=== PATIENT | female | born 1965 | race Caucasian/White ===

== ENCOUNTER 2018-06-14 08:18 | Emergency (ER) | payer OTHER ==
[~2018-06-14] VITALS: Ht 149.9 cm; Wt 59.4 kg
[~2018-06-14 08:18] MED LIST: PEPCID40 MG PO; PREVACID30 MG
== END 2018-06-14 09:06 | disposition home or self-care (01) ==
LOC: ER 08:18
DX: H60.8X2 Other otitis externa, left ear (principal)

== ENCOUNTER 2020-08-07 08:03 | Emergency (ER) | payer OTHER ==
[~2020-08-07] VITALS: Ht 149.9 cm; Wt 62.1 kg
== END 2020-08-07 12:48 | disposition home or self-care (01) ==
LOC: ER 08:03
DX: R06.02 Shortness of breath (principal); R53.83 Other fatigue; Z03.818 Encounter for observation for suspected exposure to other biological agents ruled out

== ENCOUNTER 2021-06-09 11:38 | Emergency (ER) | payer OTHER ==
[~2021-06-09] VITALS: Ht 149.9 cm; Wt 59.9 kg
== END 2021-06-09 13:41 | disposition home or self-care (01) ==
LOC: ER 11:38
DX: H66.92 Otitis media, unspecified, left ear (principal); H92.02 Otalgia, left ear

== ENCOUNTER 2021-07-24 10:26 | Emergency (ER) | payer OTHER ==
[~2021-07-24] VITALS: Ht 149.9 cm; Wt 61.2 kg
[2021-07-24] MEDS ORDERED: KETO10TA2 PO (12:43)
[2021-07-24] MEDS ORDERED: ZITHROMAX TRI-500 MG PO (12:43)
== END 2021-07-24 12:50 | disposition home or self-care (01) ==
LOC: ER 10:26
DX: B34.9 Viral infection, unspecified (principal); Z03.818 Encounter for observation for suspected exposure to other biological agents ruled out

== ENCOUNTER 2021-07-31 12:27 | Emergency (ER) | payer OTHER ==
[~2021-07-31] VITALS: Ht 154.9 cm; Wt 61.2 kg
[~2021-07-31 12:27] MED LIST changes: +KETO10TA2 PO; +ZITHROMAX TRI-500 MG PO
[2021-07-31] MEDS ORDERED: AMOX-CLAV 875-1 EACH PO (15:24)
[2021-07-31] MEDS ORDERED: MEDROLPACK PO (15:24)
[2021-07-31] MEDS ORDERED: TUSSI PRES-B L480 ML PO (15:24)
== END 2021-07-31 15:45 | disposition home or self-care (01) ==
LOC: ER 12:27
DX: J06.9 Acute upper respiratory infection, unspecified (principal); Z03.818 Encounter for observation for suspected exposure to other biological agents ruled out

== ENCOUNTER 2021-08-26 09:56 | Emergency (ER) | payer OTHER ==
[~2021-08-26] VITALS: Ht 149.9 cm; Wt 61.2 kg
[~2021-08-26 09:56] MED LIST changes: +AMOX-CLAV 875-1 EACH PO; +MEDROLPACK PO; +TUSSI PRES-B L480 ML PO
== END 2021-08-26 13:06 | disposition home or self-care (01) ==
LOC: ER 09:56
DX: B34.9 Viral infection, unspecified (principal)

== ENCOUNTER 2021-11-13 09:06 | Emergency (ER) | payer OTHER ==
[~2021-11-13] VITALS: Ht 149.9 cm; Wt 61.7 kg
== END 2021-11-13 13:06 | disposition home or self-care (01) ==
LOC: ER 09:06
DX: B34.8 Other viral infections of unspecified site (principal)

== ENCOUNTER 2021-12-24 17:45 | Emergency (ER) | payer OTHER ==
[~2021-12-24] VITALS: Ht 149.9 cm; Wt 60.3 kg
== END 2021-12-24 20:33 | disposition home or self-care (01) ==
LOC: ER 17:45
DX: J06.9 Acute upper respiratory infection, unspecified (principal); Z20.822 Contact with and (suspected) exposure to COVID-19

== ENCOUNTER 2022-08-25 07:36 | Emergency (ER) | payer OTHER ==
[~2022-08-25] VITALS: Ht 149.9 cm; Wt 62.6 kg
[2022-08-25] MEDS ORDERED: CLARITIN10 MG PO (10:24)
[2022-08-25] MEDS ORDERED: ZITHROMAX TRI-500 MG PO (10:24)
[2022-08-25] MEDS ORDERED: ZITHROMAX200 MG PO (10:26)
== END 2022-08-25 10:40 | disposition home or self-care (01) ==
LOC: ER 07:36
DX: B34.8 Other viral infections of unspecified site (principal); Z20.828 Contact with and (suspected) exposure to other viral communicable diseases

== ENCOUNTER 2022-10-03 17:15 | Emergency (ER) | payer OTHER ==
[~2022-10-03] VITALS: Ht 149.9 cm; Wt 62.1 kg
[~2022-10-03 17:15] MED LIST changes: +CLARITIN10 MG PO; +ZITHROMAX200 MG PO
== END 2022-10-03 18:45 | disposition home or self-care (01) ==
LOC: ER 17:15
DX: J06.9 Acute upper respiratory infection, unspecified (principal)

== ENCOUNTER 2022-10-09 05:14 | Emergency (ER) | payer OTHER ==
[~2022-10-09] VITALS: Ht 149.9 cm; Wt 63.5 kg
== END 2022-10-09 09:29 | disposition home or self-care (01) ==
LOC: ER 05:14
DX: J40 Bronchitis, not specified as acute or chronic (principal); Z20.822 Contact with and (suspected) exposure to COVID-19

== ENCOUNTER 2022-11-08 16:17 | Emergency (ER) | payer OTHER ==
[~2022-11-08] VITALS: Ht 149.9 cm; Wt 62.1 kg
== END 2022-11-08 20:41 | disposition home or self-care (01) ==
LOC: ER 16:17
DX: R05.9 Cough, unspecified (principal); Z20.828 Contact with and (suspected) exposure to other viral communicable diseases

== ENCOUNTER 2022-12-25 16:46 | Emergency (ER) | payer OTHER ==
[~2022-12-25] VITALS: Ht 149.9 cm; Wt 61.7 kg
== END 2022-12-25 20:19 | disposition home or self-care (01) ==
LOC: ER 16:46
DX: J02.9 Acute pharyngitis, unspecified (principal)

== ENCOUNTER 2023-03-05 05:20 | Emergency (ER) | payer OTHER ==
[~2023-03-05] VITALS: Ht 149.9 cm; Wt 61.2 kg
[2023-03-05] MEDS ORDERED: PHENAGIL TABLE1 EACH PO (07:21)
[2023-03-05] MEDS ORDERED: ZYNCOF 20-400120 ML PO (07:21)
[2023-03-05] MEDS ORDERED: ZITHROMAX500 MG PO (07:21)
== END 2023-03-05 07:57 ==
LOC: ER 05:20
DX: J02.9 Acute pharyngitis, unspecified (principal); Z87.09 Personal history of other diseases of the respiratory system; Z20.822 Contact with and (suspected) exposure to COVID-19

== ENCOUNTER 2023-07-23 17:22 | Emergency (ER) | payer OTHER ==
[~2023-07-23] VITALS: Ht 149.9 cm; Wt 63.5 kg
[~2023-07-23 17:22] MED LIST changes: +PHENAGIL TABLE1 EACH PO; +ZITHROMAX500 MG PO; +ZYNCOF 20-400120 ML PO
[2023-07-23] MEDS ORDERED: CLEOCIN HCL300 MG PO (19:18)
[2023-07-23] MEDS ORDERED: PROVENTIL HFA6.7 GM IH (19:18)
[2023-07-23] MEDS ORDERED: XOLEGEL45 GM TOP (19:19)
[2023-07-23] MEDS ORDERED: HYDROCORTISONE30 G4 TOP (19:19)
== END 2023-07-23 19:28 | disposition home or self-care (01) ==
LOC: ER 17:22
DX: R21 Rash and other nonspecific skin eruption (principal); Z87.09 Personal history of other diseases of the respiratory system

== ENCOUNTER 2023-08-12 17:29 | Emergency (ER) | payer OTHER ==
[~2023-08-12] VITALS: Ht 149.9 cm; Wt 62.6 kg
[~2023-08-12 17:29] MED LIST changes: +CLEOCIN HCL300 MG PO; +HYDROCORTISONE30 G4 TOP; +PROVENTIL HFA6.7 GM IH; +XOLEGEL45 GM TOP
== END 2023-08-12 20:48 | disposition home or self-care (01) ==
LOC: ER 17:29
DX: J10.1 Influenza due to other identified influenza virus with other respiratory manifestations (principal); Z20.822 Contact with and (suspected) exposure to COVID-19

== ENCOUNTER 2023-12-31 17:45 | Emergency (ER) | payer OTHER ==
[~2023-12-31] VITALS: Ht 149.9 cm; Wt 60.3 kg
[2023-12-31] MEDS ORDERED: KETOROLAC TROMETHAMINE 30 MG VIAL IM STA (19:45)
[2023-12-31] MEDS ORDERED: CEFTRIAXONE SODIUM 1,000 MG VIAL IM STA (19:46)
== END 2023-12-31 20:10 | disposition home or self-care (01) ==
LOC: ER 17:46
DX: J02.8 Acute pharyngitis due to other specified organisms (principal)
CPT/HCPCS: 96372; 99282; J0696; J1885

== ENCOUNTER 2024-04-11 06:33 | Emergency (ER) | payer OTHER ==
[~2024-04-11] VITALS: Ht 149.9 cm; Wt 61.2 kg
[2024-04-11] MEDS ORDERED: KETOROLAC TROMETHAMINE 30 MG VIAL IM STA (08:40)
== END 2024-04-11 09:05 | disposition home or self-care (01) ==
LOC: ER 06:34
DX: M25.561 Pain in right knee (principal); M25.562 Pain in left knee

== ENCOUNTER 2024-04-20 17:34 | Emergency (ER) | payer OTHER ==
[~2024-04-20] VITALS: Ht 149.9 cm; Wt 63.5 kg
[2024-04-20] MEDS ORDERED: DICLOFENAC SODI75 MG PO (18:49)
[2024-04-20] MEDS ORDERED: NORFLEX100MG PO (18:49)
== END 2024-04-20 18:56 | disposition home or self-care (01) ==
LOC: ER 17:35
DX: M79.604 Pain in right leg (principal)

== ENCOUNTER 2024-06-23 18:00 | Emergency (ER) | payer OTHER ==
[~2024-06-23] VITALS: Ht 149.9 cm; Wt 61.2 kg
[~2024-06-23 18:00] MED LIST changes: +DICLOFENAC SODI75 MG PO; +NORFLEX100MG PO
[2024-06-23 18:04] VITALS: BP 105/66; O2SAT 99
[2024-06-23] MEDS ORDERED: ALBUTEROL2.5 MG/3 M IH (18:23)
[2024-06-23] MEDS ORDERED: PROAIR RESPICL90 MCG IH (18:23)
[2024-06-23] MEDS ORDERED: TUSNEL LIQUID178 ML PO (18:23)
[2024-06-23] MEDS ORDERED: AMOX-CLAV 875-1 EACH PO (18:23)
[2024-06-23] MEDS ORDERED: GUAIFENESIN/DEXTROMETHORPHAN 10ML BLIST.PACK PO ONE (18:30)
[2024-06-23] MEDS ORDERED: DEXAMETHASONE SODIUM PHOSPHATE 4 MG/ML VIAL IM ONE (18:30)
[2024-06-23] MEDS ORDERED: CEFTRIAXONE SODIUM 1,000 MG VIAL IM ONE (18:30)
== END 2024-06-23 19:27 | disposition home or self-care (01) ==
LOC: ER 18:01
DX: H66.90 Otitis media, unspecified, unspecified ear (principal); J02.9 Acute pharyngitis, unspecified; J06.9 Acute upper respiratory infection, unspecified

== ENCOUNTER → 2024-10-20 | Emergency (ER) | payer OTHER ==
[~2024-10-20] VITALS: Ht 149.9 cm; Wt 59.9 kg
[~2024-10-20] MED LIST changes: +ALBUTEROL2.5 MG/3 M IH; +KETOROLAC TROMETHAMINE 30 MG VIAL ONE; +PROAIR RESPICL90 MCG IH; +TUSNEL LIQUID178 ML PO
== END | disposition left against medical advice (07) ==
LOC: ER 17:22
DX: Z53.21 Procedure and treatment not carried out due to patient leaving prior to being seen by health care provider (principal)

== ENCOUNTER 2024-10-21 14:05 | Emergency (ER) | payer OTHER ==
[~2024-10-21] VITALS: Ht 149.9 cm; Wt 61.2 kg
[~2024-10-21 14:05] MED LIST changes: -KETOROLAC TROMETHAMINE 30 MG VIAL ONE
[2024-10-21] MEDS ORDERED: KETOROLAC TROMETHAMINE 30 MG VIAL IM STA (15:47)
== END 2024-10-21 15:56 | disposition home or self-care (01) ==
LOC: ER 14:07
DX: M25.561 Pain in right knee (principal)

== ENCOUNTER 2025-04-19 17:32 | Emergency (ER) | payer OTHER ==
[~2025-04-19] VITALS: Ht 149.9 cm; Wt 63.5 kg
[2025-04-19] MEDS ORDERED: BENZONATATE 100 MG CAPSULE PO ONE (19:00)
[2025-04-19] MEDS ORDERED: IPRATROPIUM/ALBUTEROL SULFATE 3 ML AMPUL.NEB IH SCH (19:00)
[2025-04-19] MEDS ORDERED: METHYLPREDNISOLONE SOD SUCC 125 MG VIAL IV ONE (19:00)
[2025-04-19] MEDS ORDERED: METHYLPREDNISOLONE SOD SUCC 125 MG VIAL ONE (19:11)
[2025-04-19 20:05] LABS: BASO % 0.9 % (0.1-1.2); EOS # 0.56 (0.04-0.54); EOS % 7.3 % (0.7-7.0); LYMPH # 2.49 (1.18-3.74); LYMPH % 32.7 % (19.3-53.1); MEAN PLATELET VOLUME 10.10 fl (9.4-12.4); MONO # 0.51 (0.24-0.82); MONO % 6.7 % (4.7-12.5); NEUT # 3.97 (1.56-6.13); NEUT % 52.1 % (34.0-71.1); RED CELL DISTRIBUTION WIDTH 12.3 % (11.6-14.4)
[2025-04-19] MEDS ORDERED: IPRATROPIUM/ALBUTEROL SULFATE 3 ML AMPUL.NEB IH ONE (20:13)
[2025-04-19 21:13] LABS: COVID-19 AG NEGATIVE (NEGATIVE)
[2025-04-19] MEDS ORDERED: PROAIR RESPICL90 MCG IH (22:02)
[2025-04-19] MEDS ORDERED: IPRATROPIU0.2 MG/1 M IH (22:02)
[2025-04-19] MEDS ORDERED: BENZONATATE200 M1 PO (22:02)
[2025-04-19] MEDS ORDERED: SINGULAIR10 MG PO (22:02)
[2025-04-19] MEDS ORDERED: MEDROLPACK PO (22:02)
[2025-04-19] MEDS ORDERED: ALBUTEROL1.25 MG/3 IH (22:02)
== END 2025-04-19 22:32 ==
LOC: ER 17:35
PROVIDERS: General Practice
DX: J45.901 Unspecified asthma with (acute) exacerbation (principal); Z20.822 Contact with and (suspected) exposure to COVID-19

== ENCOUNTER 2025-04-26 09:56 | Emergency (ER) | payer OTHER ==
[~2025-04-26] VITALS: Ht 149.9 cm; Wt 64.4 kg
[~2025-04-26 09:56] MED LIST changes: +ALBUTEROL1.25 MG/3 IH; +BENZONATATE200 M1 PO; +IPRATROPIU0.2 MG/1 M IH; +SINGULAIR10 MG PO
[2025-04-26 10:02] VITALS: BP 128/61; O2SAT 98
[2025-04-26] MEDS ORDERED: HYDROCODONE/CHLORPHEN P-STIREX 5 ML ML PO STA (11:05)
[2025-04-26] MEDS ORDERED: CEFTRIAXONE SODIUM 1,000 MG VIAL IM STA (11:06)
== END 2025-04-26 11:25 | disposition home or self-care (01) ==
LOC: ER 09:56
DX: J06.9 Acute upper respiratory infection, unspecified (principal)

== ENCOUNTER 2025-06-16 10:58 | Emergency (ER) | payer OTHER ==
[~2025-06-16] VITALS: Ht 149.9 cm; Wt 63.5 kg
[2025-06-16 12:31] LABS: BASO % 0.8 % (0.1-1.2); EOS # 0.31 (0.04-0.54); EOS % 5.8 % (0.7-7.0); LYMPH # 1.93 (1.18-3.74); LYMPH % 36.2 % (19.3-53.1); MEAN PLATELET VOLUME 10.40 fl (9.4-12.4); MONO # 0.30 (0.24-0.82); MONO % 5.6 % (4.7-12.5); NEUT # 2.73 (1.56-6.13); NEUT % 51.2 % (34.0-71.1); RED CELL DISTRIBUTION WIDTH 11.9 % (11.6-14.4)
[2025-06-16 13:00] LABS: COVID-19 AG NEGATIVE (NEGATIVE)
== END 2025-06-16 15:13 | disposition home or self-care (01) ==
LOC: ER 10:58
PROVIDERS: General Practice
DX: J06.9 Acute upper respiratory infection, unspecified (principal); Z20.822 Contact with and (suspected) exposure to COVID-19

== ENCOUNTER 2025-07-21 08:05 | Emergency (ER) | payer OTHER ==
[~2025-07-21] VITALS: Ht 149.9 cm; Wt 62.6 kg
[2025-07-21] MEDS ORDERED: METHYLPREDNISOLONE SOD SUCC 40 MG VIAL IV STA (09:13)
[2025-07-21] MEDS ORDERED: CETIRIZINE HCL 5 MG/5 ML ML PO STA (09:13)
[2025-07-21] MEDS ORDERED: GUAIFENESIN/DEXTROMETHORPHAN 100MG/10ML BLIST.PACK PO STA (09:13)
[2025-07-21] MEDS ORDERED: FLONASE16 GM NASAL (09:21)
[2025-07-21] MEDS ORDERED: ZYRTEC10 MG PO (09:21)
[2025-07-21] MEDS ORDERED: SALINE NOSE SPR45 ML NASAL (09:21)
== END 2025-07-21 09:41 | disposition home or self-care (01) ==
LOC: ER 08:05
DX: J32.9 Chronic sinusitis, unspecified (principal)